=== PATIENT | female | born 1995 | race Caucasian/White ===

== ENCOUNTER 2018-02-15 08:32 | Emergency (ER) | payer BC, OTHER ==
--- NOTE | 2018-02-15 09:12 | ER Document Report ---
ED General - General Chief Complaint: Low Back Pain Stated Complaint: BACK PAIN Time Seen by Provider: 02/15/18 08:43 Notes: This is a 22-year-old female patient emergency department chief complaint of low back pain. Patient is approximately 18 weeks . No fever, chills, sweats. Recently was diagnosed with UTI and pyelo-. Was hospitalized. Currently patient is complaining of pain in the lumbar spine that radiates down both legs. Hurts to move and bend over. No trauma. No other issues at this time. Denies any complaints. Denies any numbness in the crotch area. No loss of function of the lower extremities. No fever. No loss of bowel or bladder function. TRAVEL OUTSIDE OF THE [place] IN LAST 30 DAYS: No - HPI Onset/Duration: Gradual - Related Data Allergies/Adverse Reactions: No Known Allergies Allergy (Verified 02/15/18 08:32) Past Medical History - General Information source: Patient - Social History Smoking Status: Never Smoker Chew tobacco use (# tins/day): No Frequency of alcohol use: None Drug Abuse: None Lives with: Family Family History: Reviewed & Not Pertinent Patient has suicidal ideation: No Patient has homicidal ideation: No Renal/ Medical History: Denies: Hx Peritoneal Dialysis Psychiatric Medical History: Reports: Hx Depression - Immunizations Immunizations up to date: Yes Hx Diphtheria, Pertussis, Tetanus Vaccination: Yes Review of Systems - Review of Systems Notes: Constitutional: denies: Chills, Diaphoresis, Fever, Malaise, Weakness EENT: denies: Eye discharge, Blurred vision, Tearing, Double vision, Nose congestion, Nose discharge, Throat swelling, Mouth pain Cardiovascular: denies: Palpitations, Heart racing, Orthopnea, Dyspnea, Chest pain Respiratory: denies: Cough, Hurts to breathe, Wheezing, Shortness of breath Gastrointestinal: denies: Abdominal pain, Diarrhea, Nausea, Vomiting, Black stools, bright red blood in stool Genitourinary: denies: Burning, Dysuria, Discharge, Frequency, Flank pain, Hematuria. Patient is 18 weeks . Musculoskeletal: denies: Joint pain, Joint swelling, Muscle pain, Muscle stiffness, does complain of back pain. Hematologic/Lymphatic: denies: Anemia, Easy bleeding, Easy bruising, Blood clots Neurological/Psychological: denies: Confusion, Dementia, Depression, Loss of consciousness Skin: No lesions, no masses, no skin breakdown, no abscesses Physical Exam - Vital signs Vitals: Temp Pulse Resp BP Pulse Ox 98.2 F 80 16 106/53 L 98 02/15/18 08:35 02/15/18 08:35 02/15/18 08:35 02/15/18 08:35 02/15/18 08:35 Interpretation: Normal - General General appearance: Appears well, Alert - HEENT Head: Normocephalic, Atraumatic Eyes: Normal Pupils: PERRL - Respiratory Respiratory status: No respiratory distress Chest status: Nontender Breath sounds: Normal Chest palpation: Normal - Cardiovascular Rhythm: Regular Heart sounds: Normal auscultation Murmur: No - Abdominal Inspection: Normal Distension: No distension Bowel sounds: Normal Tenderness: Nontender Organomegaly: No organomegaly - Back Back: Normal, Tender - Tenderness to palpation bilateral lumbar spine muscle area. No midline tenderness. Negative straight leg laterally - Extremities General upper extremity: Normal inspection, Nontender, Normal color, Normal ROM , Normal temperature General lower extremity: Normal inspection, Nontender, Normal color, Normal ROM , Normal temperature, Normal weight bearing. No: Ana's sign - Neurological Neuro grossly intact: Yes Cognition: Normal Orientation: AAOx4 Peyton Coma Scale Eye Opening: Spontaneous [place] Coma Scale Verbal: Oriented [place] Coma Scale Motor: Obeys Commands Peyotn Coma Scale Total: 15 Speech: Normal Motor strength normal: LUE, RUE, LLE, RLE Sensory: Normal - Psychological Associated symptoms: Normal affect, Normal mood - Skin Skin Temperature: Warm Skin Moisture: Dry Skin Color: Normal Course - Re-evaluation Re-evalutation: 02/15/18 09:39 Urinalysis concerning for mild UTI. Will add culture but based on the fact that she is will need to be treated. Well-appearing 18-week fetus seen on ultrasound with a heart rate of 146. Tylenol given. Will prescribe a few Flexeril. Advised her to drink plenty of liquids, ice packs and follow-up with her regular doctor. Red flag warning signs were given 02/15/18 10:00 - Vital Signs Vital signs: Temp Pulse Resp BP Pulse Ox 98.2 F 80 16 106/53 L 98 02/15/18 08:35 02/15/18 08:35 02/15/18 08:35 02/15/18 08:35 02/15/18 08:35 - Laboratory Laboratory results interpreted by me: 02/15/18 08:50 Urine Urobilinogen 2.0 H Ur Leukocyte Esterase SMALL H Discharge - Discharge Clinical Impression: Low back pain Qualifiers: Chronicity: acute Back pain laterality: bilateral Sciatica presence: with sciatica Sciatica laterality: bilateral sciatica Qualified Code(s): M54.42 - Lumbago with sciatica, left side; M54.41 - Lumbago with sciatica, right side; M54.41 - Lumbago with sciatica, right side Urinary tract infection Qualifiers: Urinary tract infection type: site unspecified Hematuria presence: without hematuria Qualified Code(s): N39.0 - Urinary tract infection, site not specified Condition: Good Disposition: HOME, SELF-CARE Instructions: Ice Packs ([facility]), Low Back Pain ([facility]), Muscle Strain ([facility]), Urinary Tract Infection ([facility]) Prescriptions: Cyclobenzaprine HCl [Flexeril 5 mg Tablet] 5 mg PO QHS PRN 5 Days #5 tablet PRN Reason: Muscle Spasms Nitrofurantoin/Nitrofuran Mac [Macrobid 100 mg Capsule] 1 tab PO BID #20 capsule Referrals: MERLIN ROGERS MD [ACTIVE STAFF] - Follow up as needed
[2018-02-15] MEDS ORDERED: ACETAMINOPHEN 325 MG TABLET PO ONE (09:19)
[2018-02-15 09:52] LABS: APPEARANCE,URINE CLOUDY; BILIRUBIN,URINE NEGATIVE (NEGATIVE); COLOR,URINE YELLOW; GLUCOSE, URINE NEGATIVE (NEGATIVE); KETONES,URINE NEGATIVE (NEGATIVE); LEUKOCYTE ESTERASE,URINE SMALL (NEGATIVE); NITRITE,URINE NEGATIVE (NEGATIVE); PROTEIN,URINE NEGATIVE (NEGATIVE); URINE SPECIFIC GRAVITY 1.026
[2018-02-15] MEDS ORDERED: NITROFURANTOIN MONOHYD/M-CRYST 100 MG CAPSULE PO ONE (10:03)
[2018-02-15 10:36] VITALS: BP 110/70
== END 2018-02-15 10:30 | disposition home or self-care (01) ==
LOC: ER 08:32
DX: O99.89 Other specified diseases and conditions complicating pregnancy, childbirth and the puerperium (principal); M54.41 Lumbago with sciatica, right side; M54.42 Lumbago with sciatica, left side; O23.42 Unspecified infection of urinary tract in pregnancy, second trimester; Z3A.18 18 weeks gestation of pregnancy
CPT/HCPCS: 99283; 87086; 81001; J8499

== ENCOUNTER 2018-02-22 10:56 | Emergency (ER) | payer OTHER ==
--- NOTE | 2018-02-22 11:11 | ER Document Report ---
ED Medical Screen (RME) - General Chief Complaint: Abdominal Pain Stated Complaint: ABDOMINAL PAIN Time Seen by Provider: 02/22/18 11:09 Mode of Arrival: Ambulatory Information source: Patient TRAVEL OUTSIDE OF THE [place] IN LAST 30 DAYS: No - HPI Patient complains to provider of: abd pain; Onset: Yesterday - pt is approx 19 wks and started with abd pain last pm. Worse this am. Denies vag bleeding - Related Data Allergies/Adverse Reactions: No Known Allergies Allergy (Verified 02/22/18 10:57) Past Medical History Renal/ Medical History: Denies: Hx Peritoneal Dialysis Psychiatric Medical History: Reports: Hx Depression - Immunizations Immunizations up to date: Yes Hx Diphtheria, Pertussis, Tetanus Vaccination: Yes Physical Exam - Vital signs Vitals: Temp Pulse Resp BP Pulse Ox 97.3 F 81 16 104/55 L 100 02/22/18 10:58 02/22/18 10:58 02/22/18 10:58 02/22/18 10:58 02/22/18 10:58 Course - Vital Signs Vital signs: Temp Pulse Resp BP Pulse Ox 97.3 F 81 16 104/55 L 100 02/22/18 10:58 02/22/18 10:58 02/22/18 10:58 02/22/18 10:58 02/22/18 10:58 Doctor's Discharge - Discharge Referrals: MARIFER MCADAMS PA-C [Primary Care Provider] - Follow up as needed
--- NOTE | 2018-02-22 12:00 | RADIOLOGY REPORT (SQ) ---
EXAM DESCRIPTION: U/S OB 14+ TA/1 GEST W/DOPPLER COMPLETED DATE/TIME: 02/22/2018 11:50 am REASON FOR STUDY: abd pain COMPARISON: None. TECHNIQUE: Static and Dynamic grayscale imaging performed of gravid uterus using transabdominal appr oach. Additional selected color Doppler and spectral images recorded. All stored on PACS. LIMITATIONS: None. FINDINGS: FETUSES SEEN:1 EGA: 18 weeks 4 days. Calculated using BPD,FL,HC,AC documented on images. No discrepancy with clinic al dates. EMERSON: 07/22/2017 EFW: 256 grams PERCENTILE: Not applicable. Fetus less than or equal to 20 weeks gestation. DIANNA: 5.3 PLACENTA: Posterior. GRADE: I PRESENTATION: Breech. ANATOMY: HEART RATE: 152 beats per minute. FOUR CHAMBER HEART: Visualized. THREE VESSEL CORD: Yes. CORD INSERTION: Visualized. KIDNEYS AND BLADDER: Bladder not visualized. STOMACH: Visualized. Appears normal. SPINE: Normal as visualized. BRAIN AND LATERAL VENTRICLES: Visualized. Appear normal. OTHER: No other significant finding. MATERNAL ADNEXA: Maternal ovaries not visualized. CERVICAL LENGTH: 3.4 cm. Closed. OTHER: No other significant finding. IMPRESSION: LIVING INTRAUTERINE . ESTIMATED GESTATIONAL AGE 18 weeks 4 days. NO VISUALIZED ANOMALIES. Trimester of : Second trimester - 13 weeks 1 day to 27 weeks 6 days. TECHNICAL DOCUMENTATION: JOB ID: [id number] [employer]- All Rights Reserved Reading location - IP/workstation name: [email or web address]
[2018-02-22 12:11] LABS: ABSOLUTE LYMPHOCYTES (AUTO) 1.4 10^3/uL (0.5-4.7); ABSOLUTE MONOCYTES (AUTO) 0.6 10^3/uL (0.1-1.4); ABSOLUTE NEUT (AUTO) 7.3 10^3/uL (1.7-8.2); BASOPHILS % (AUTO) 0.3 % (0-2); EOSINOPHILS % (AUTO) 0.3 % (0-6); HEMATOCRIT 35.9 % (36.0-47.0); HEMOGLOBIN 12.6 g/dL (12.0-15.5); LYMPHOCYTES % (AUTO) 14.9 % (13-45); MEAN CORPUSCULAR HEMOGLOBIN 30.9 pg (27.0-33.4); MEAN CORPUSCULAR HGB CONC 35.1 g/dL (32.0-36.0); MEAN CORPUSCULAR VOLUME 88 fl (80-97); MONOCYTES % (AUTO) 5.9 % (3-13); PLATELET COUNT 253 10^3/uL (150-450); RED BLOOD COUNT 4.09 10^6/uL (3.72-5.28); RED CELL DISTRIBUTION WIDTH 13.9 % (11.5-14.0); SEGMENTED NEUTROPHILS % (AUTO) 78.6 % (42-78); TOTAL CELLS COUNTED % (AUTO) 100 %; WHITE BLOOD COUNT 9.3 10^3/uL (4.0-10.5)
[2018-02-22 12:25] LABS: APPEARANCE,URINE SLIGHTLY-CLOUDY; BILIRUBIN,URINE NEGATIVE (NEGATIVE); COLOR,URINE YELLOW; GLUCOSE, URINE NEGATIVE (NEGATIVE); KETONES,URINE NEGATIVE (NEGATIVE); LEUKOCYTE ESTERASE,URINE NEGATIVE (NEGATIVE); NITRITE,URINE NEGATIVE (NEGATIVE); PROTEIN,URINE NEGATIVE (NEGATIVE); URINE SPECIFIC GRAVITY 1.026
[2018-02-22 12:30] LABS: ALANINE AMINOTRANSFERASE 7 U/L (9-52); ALBUMIN 3.7 g/dL (3.5-5.0); ALKALINE PHOSPHATASE 55 U/L (38-126); ANION GAP 7 (5-19); ASPARTATE AMINO TRANSFERASE 14 U/L (14-36); BILIRUBIN,DIRECT 0.2 mg/dL (0.0-0.4); BILIRUBIN,TOTAL 0.7 mg/dL (0.2-1.3); BLOOD UREA NITROGEN 13 mg/dL (7-20); CALCIUM 9.4 mg/dL (8.4-10.2); CARBON DIOXIDE 24 mmol/L (22-30); CHLORIDE 107 mmol/L (98-107); GLUCOSE 85 mg/dL (75-110); POTASSIUM 4.4 mmol/L (3.6-5.0); SODIUM 138.4 mmol/L (137-145); TOTAL PROTEIN 6.7 g/dL (6.3-8.2)
--- NOTE | 2018-02-22 12:45 | ER Document Report ---
ED GI/ - General Chief Complaint: Abdominal Pain Stated Complaint: ABDOMINAL PAIN Time Seen by Provider: 02/22/18 11:09 Mode of Arrival: Ambulatory Information source: Patient Notes: Patient is a 22-year-old female with past medical history as recorded who presents today stating the onset last night of some epigastric abdominal discomfort that is now mostly to the right lower quadrant. It was not associated with food. She has had nausea without vomiting, fevers, or diarrhea. She denies any dysuria or flank pain. She denies any aggravating or relieving factors. She denies any radiation of the pain. Patient is a at 18 and 5 by ultrasound with women[facility] health clinic. TRAVEL OUTSIDE OF THE [place] IN LAST 30 DAYS: No - HPI Patient complains to provider of: Other - See above Onset: Other - See above Timing/Duration: Gradual Quality of pain: Achy Severity at maximum: Moderate Severity in ED: Mild Pain Level: 1 Location: Other - See above Vaginal bleeding (Compared to normal period): None Associated symptoms: Other - See above Exacerbated by: Denies Relieved by: Denies Similar symptoms previously: No Recently seen / treated by doctor: No - Related Data Allergies/Adverse Reactions: No Known Allergies Allergy (Verified 02/22/18 10:57) Past Medical History - General Information source: Patient - Social History Smoking Status: Never Smoker Chew tobacco use (# tins/day): No Frequency of alcohol use: None Drug Abuse: None Family History: Reviewed & Not Pertinent Patient has suicidal ideation: No Patient has homicidal ideation: No Renal/ Medical History: Denies: Hx Peritoneal Dialysis Psychiatric Medical History: Reports: Hx Depression - Immunizations Immunizations up to date: Yes Hx Diphtheria, Pertussis, Tetanus Vaccination: Yes Review of Systems - Review of Systems Constitutional: denies: Fever Cardiovascular: denies: Chest pain Respiratory: denies: Short of breath Gastrointestinal: denies: Vomiting Genitourinary: denies: Dysuria Female Genitourinary: denies: Vaginal bleeding Musculoskeletal: denies: Leg swelling Skin: Other - no hives. denies: Rash Neurological/Psychological: Other - no slurred speech -: Yes All other systems reviewed and negative Physical Exam - Vital signs Vitals: Temp Pulse Resp BP Pulse Ox 97.3 F 81 16 104/55 L 100 02/22/18 10:58 02/22/18 10:58 02/22/18 10:58 02/22/18 10:58 02/22/18 10:58 Notes: Reviewed vital signs and nursing note as charted by RN. CONSTITUTIONAL: Alert and oriented and responds appropriately to questions. Well -appearing; well-nourished HEAD: Normocephalic; atraumatic EYES: Sclerae non-icteric ENT: Normal nose; no rhinorrhea; moist mucous membranes; pharynx without lesions noted NECK: Supple without meningismus; non-tender; no cervical lymphadenopathy, no masses CARD: Regular rate and rhythm; no murmurs RESP: Normal chest excursion without splinting or tachypnea; breath sounds clear and equal bilaterally ABD/GI: Normal bowel sounds; non-distended; fundus palpated slightly underneath the umbilicus. Patient has some mild right lower quadrant tenderness without rebound or guarding BACK: The back appears normal and is non-tender to palpation EXT: Normal ROM in all joints; non-tender to palpation; no edema SKIN: No acute lesions noted NEURO: CN 2-12 intact; 5/5 bilateral upper and lower extremity strength with sensation intact to light touch PSYCH: The patient's mood and manner are appropriate. Grooming and personal hygiene are appropriate. Course - Re-evaluation Re-evalutation: Given the history and physical examination, basic labs including urine analysis were ordered in triage. An ultrasound of the abdomen was also ordered in triage. Given the initial epigastric discomfort now migrated to the right lower quadrant with no vaginal bleeding and an 18-week female, I am concerned about the possibility of appendicitis. I will order an MRI of the abdomen. I will also check the cervix to make sure that there is no obvious dilation. Given that the patient has had no vaginal bleeding is not viable, I am not concerned about placenta previa at this moment. 02/22/18 12:46 Ultrasound as recorded. Urine analysis no obvious infection. Liver panel and lipase as recorded. With rotary engraver present I performed a manual examination showing a closed non- effaced cervix. 02/22/18 16:07 Labs and MRI as recorded. Examination is improved. Normal urine analysis. Given the above history and physical examination, with no recent pain or contraction-like symptoms, patient will be discharged home with strict return precautions and follow-up with the primary care physician. - Vital Signs Vital signs: Temp Pulse Resp BP Pulse Ox 97.3 F 81 16 104/55 L 100 02/22/18 10:58 02/22/18 10:58 02/22/18 10:58 02/22/18 10:58 02/22/18 10:58 - Laboratory Result Diagrams: 02/22/18 11:17 02/22/18 11:17 Laboratory results interpreted by me: 02/22/18 02/22/18 02/22/18 11:17 11:17 11:17 Hct 35.9 L Seg Neutrophils % 78.6 H ALT 7 L Beta HCG, Quant 75844.00 H Urine Urobilinogen 2.0 H Discharge - Discharge Clinical Impression: Abdominal discomfort, and not yet delivered in second trimester Condition: Good Disposition: HOME, SELF-CARE Additional Instructions: Come back immediately for any increased return of pain, fevers, vomiting, pain with urination, vaginal bleeding, or any other acute problems. Please follow- up with the AMBULATORY SERVICES REPRESENTATIVE as we have discussed. Referrals: MARIFER MCADAMS PA-C [Primary Care Provider] - Follow up as needed
--- NOTE | 2018-02-22 15:38 | RADIOLOGY REPORT (SQ) ---
EXAM DESCRIPTION: MRI ABDOMEN WITHOUT COMPLETED DATE/TIME: 02/22/2018 3:19 pm REASON FOR STUDY: 20; 18/5 wks ; RLQ pain COMPARISON: Ultrasound 02/22/2018. TECHNIQUE: Noncontrast imaging of the abdomen and pelvis consisting of T1 and T2 sequences. FINDINGS: Appendix: The appendix is identified in a retrocecal location and measures up to 8 mm. No surrounding inflammatory changes are suggested. Visualized solid organs: Unremarkable. No urinary obstruction suggested. Gallbladder: No stones suggested. No duct dilatation. Visualized bowel: Stool is present but no suggestion of abnormal bowel wall thickening or evidence o f gross obstruction. Other: Incompletely assessed fetus. There is suggestion of motion, variable positioning durin g the various scans. Marrow signal unremarkable. No vascular pathology. IMPRESSION: 1. No acute abdominal abnormality. No suggestion of appendicitis. TECHNICAL DOCUMENTATION: JOB ID: [id number] [employer]- All Rights Reserved Reading location - IP/workstation name: [email or web address]
[2018-02-22 16:29] VITALS: BP 96/58
== END 2018-02-22 16:29 | disposition home or self-care (01) ==
LOC: ER 10:56
DX: O26.92 Pregnancy related conditions, unspecified, second trimester (principal); R10.13 Epigastric pain; R11.0 Nausea; R50.9 Fever, unspecified; R19.7 Diarrhea, unspecified; Z3A.18 18 weeks gestation of pregnancy
CPT/HCPCS: 36415; 74181; 76805; 80053; 81001; 84702; 85025; 93976; 99284

== ENCOUNTER 2018-04-14 15:18 | Outpatient (CLI) | payer BC, OTHER ==
[2018-04-14] MEDS ORDERED: RINGERS SOLUTION,LACTATED 1,000 ML IV ONE (15:49)
[2018-04-14] MEDS ORDERED: HYDROXYZINE PAMOATE 50 MG CAPSULE PO ONE (15:50)
[2018-04-14 15:53] LABS: AMORPHOUS SEDIMENT,URINE TRACE /HPF; APPEARANCE,URINE CLOUDY; BILIRUBIN,URINE NEGATIVE (NEGATIVE); COLOR,URINE YELLOW; GLUCOSE, URINE NEGATIVE (NEGATIVE); KETONES,URINE 20 mg/dL (NEGATIVE); LEUKOCYTE ESTERASE,URINE LARGE (NEGATIVE); NITRITE,URINE NEGATIVE (NEGATIVE); PROTEIN,URINE 100 mg/dL (NEGATIVE); URINE SPECIFIC GRAVITY 1.008; UROBILINOGEN,URINE NEGATIVE mg/dL (<2.0)
[2018-04-14] MEDS ORDERED: HYDROXYZINE PAMOATE 50 MG CAPSULE ONE (15:59)
[2018-04-14 16:09] LABS: URINE AMPHETAMINES SCREEN NEGATIVE; URINE BARBITURATES SCREEN NEGATIVE; URINE BENZODIAZEPINES SCREEN NEGATIVE; URINE COCAINE SCREEN NEGATIVE; URINE MARIJUANA (THC) SCREEN NEGATIVE; URINE METHADONE SCREEN NEGATIVE; URINE PHENCYCLIDINE SCREEN NEGATIVE
[2018-04-14 16:20] LABS: BACTERIA (WET MOUNT) 4+ BACTERIA SEEN; EPITHELIALS (WET MOUNT) 4+ EPITHELIALS SEEN; T.VAGINALIS (WET MOUNT) NO TRICHOMONAS SEEN; WBCS (WET MOUNT) 2+ WBCS SEEN; YEAST (WET MOUNT) NO YEAST SEEN
[2018-04-14] MEDS ORDERED: TERBUTALINE SULFATE INJ/PF 1 MG/1 ML SDV SUBCUT ONE (17:05)
[2018-04-14] MEDS ORDERED: TERBUTALINE SULFATE INJ/PF 1 MG/1 ML SDV ONE (17:06)
[2018-04-14 17:43] LABS: CHLAM PCR NOT DETECTED (NOT DETECT); GON PCR NOT DETECTED (NOT DETECT)
--- NOTE | 2018-04-14 17:52 | RADIOLOGY REPORT (SQ) ---
EXAM DESCRIPTION: U/S OB LIMITED COMPLETED DATE/TIME: 04/14/2018 5:37 pm REASON FOR STUDY: hussain at 26 wks COMPARISON: None. TECHNIQUE: Limited transabdominal grayscale ultrasound for evaluation of specific requested obstetri angelina parameters. LIMITATIONS: None. FINDINGS: CERVICAL LENGTH: 4.5 cm. Closed. DIANNA: 20.0 cm. FHR: 168 beats per minute. PRESENTATION: Transverse, head to the maternal left. PLACENTA: Posterior ANATOMY: Not assessed OTHER: No other significant findings. IMPRESSION: LIMITED OBSTETRICAL ULTRASOUND WITH MEASURED PARAMETERS DELINEATED ABOVE. Trimester of : Second trimester - 13 weeks 1 day to 27 weeks 6 days. TECHNICAL DOCUMENTATION: JOB ID: [id number] [employer]- All Rights Reserved Reading location - IP/workstation name: [email or web address]
== END 2018-04-14 17:56 | disposition home or self-care (01) ==
LOC: LC 15:18
PROVIDERS: ATTEND Obstetrics & Gynecology
PROC: 4A1HXCZ Monitoring of Products of Conception, Cardiac Rate, External Approach (ICD-10-PCS; principal; 2018-04-14)
DX: O47.02 False labor before 37 completed weeks of gestation, second trimester (principal); Z3A.26 26 weeks gestation of pregnancy
CPT/HCPCS: 59899; 87210; 81001; 80307; 87491; 87591; 82731; 76815; J3105

== ENCOUNTER 2018-04-17 21:17 | Outpatient (CLI) | payer BC, OTHER ==
[2018-04-17 21:58] LABS: APPEARANCE,URINE CLOUDY; BILIRUBIN,URINE NEGATIVE (NEGATIVE); COLOR,URINE AMBER; GLUCOSE, URINE NEGATIVE (NEGATIVE); KETONES,URINE 80 mg/dL (NEGATIVE); LEUKOCYTE ESTERASE,URINE MODERATE (NEGATIVE); NITRITE,URINE NEGATIVE (NEGATIVE); PROTEIN,URINE 100 mg/dL (NEGATIVE); UROBILINOGEN,URINE NEGATIVE mg/dL (<2.0)
[2018-04-17 22:10] LABS: URINE AMPHETAMINES SCREEN NEGATIVE; URINE BARBITURATES SCREEN NEGATIVE; URINE BENZODIAZEPINES SCREEN NEGATIVE; URINE COCAINE SCREEN NEGATIVE; URINE MARIJUANA (THC) SCREEN NEGATIVE; URINE METHADONE SCREEN NEGATIVE; URINE PHENCYCLIDINE SCREEN NEGATIVE
== END 2018-04-17 22:25 | disposition home or self-care (01) ==
LOC: LC 21:17
PROVIDERS: ATTEND Obstetrics & Gynecology Gynecology
PROC: 4A1HXCZ Monitoring of Products of Conception, Cardiac Rate, External Approach (ICD-10-PCS; principal; 2018-04-17)
DX: O47.02 False labor before 37 completed weeks of gestation, second trimester (principal); Z3A.25 25 weeks gestation of pregnancy
CPT/HCPCS: 80307; 81001; 87086; 87088; 87186

== ENCOUNTER → 2018-07-22 | Outpatient (CLI) | payer BC, OTHER ==
--- NOTE | 2018-07-22 15:18 | RADIOLOGY REPORT (SQ) ---
EXAM DESCRIPTION: FOOT BILATERAL 3 VIEWS COMPLETED DATE/TIME: 07/22/2018 3:07 pm REASON FOR STUDY: M79.673 PAIN IN UNSPECIFIED FOOT M79.673 PAIN IN UNSPECIFIED FOOT R60.9 EDEMA, U NSPECIFIED COMPARISON: None. NUMBER OF VIEWS: Six views. TECHNIQUE: AP, lateral and oblique radiographic images acquired of the right and left foot. LIMITATIONS: None. FINDINGS: MINERALIZATION: Normal. BONES: No acute fracture or dislocation. No worrisome bone lesions. JOINTS: Intact. Bilateral hallux valgus. SOFT TISSUES: No soft tissue swelling. No foreign body. OTHER: No other significant finding. IMPRESSION: No acute findings. TECHNICAL DOCUMENTATION: JOB ID: [id number] [employer]- All Rights Reserved Reading location - IP/workstation name: [email or web address]
== END ==
LOC: RAD 14:50
PROVIDERS: ATTEND Obstetrics & Gynecology
DX: M79.673 Pain in unspecified foot (principal); R60.9 Edema, unspecified

== ENCOUNTER 2018-07-23 00:10 | Inpatient (IN) | payer BC ==
[2018-07-23] MEDS ORDERED: RINGERS SOLUTION,LACTATED 1,000 ML IV ONE (00:42)
[2018-07-23] MEDS ORDERED: RINGERS SOLUTION,LACTATED 1,000 ML IV PRN (00:42)
[2018-07-23] MEDS ORDERED: PHENYLEPHRINE HCL INJ/PF 10 MG/1 ML SDV ONE (01:04)
[2018-07-23] MEDS ORDERED: FENTANYL CITRATE INJ/PF 100 MCG/2 ML AMPUL ONE (01:04)
[2018-07-23] MEDS ORDERED: MISOPROSTOL 0.2 MG TABLET ONE (01:04)
[2018-07-23] MEDS ORDERED: OXYTOCIN 10 UNIT/ML VIAL ONE (01:04)
[2018-07-23] MEDS ORDERED: EPHEDRINE SULFATE INJ 50 MG/1 ML AMPULE ONE (01:04)
[2018-07-23] MEDS ORDERED: FENTANYL/BUPIVACAINE/NS/PF 0 MCG/0 ML RTUINJ EPI ONE (01:05)
[2018-07-23] MEDS ORDERED: LIDOCAINE 1% INJ-PF (10 MG/ML) 30 ML SDV ONE (01:05)
[2018-07-23] MEDS ORDERED: OXYTOCIN/NORMAL SALINE 20 UNIT/1,000 ML RTUINJ ONE (01:05)
[2018-07-23] MEDS ORDERED: BUPIVACAINE HCL 0.25 % INJ/PF (2.5 MG/1 ML) 30 ML VIAL ONE (01:05)
[2018-07-23 01:13] LABS: ABSOLUTE LYMPHOCYTES (AUTO) 1.9 10^3/uL (0.5-4.7); ABSOLUTE MONOCYTES (AUTO) 0.9 10^3/uL (0.1-1.4); BASOPHILS % (AUTO) 0.3 % (0-2); EOSINOPHILS % (AUTO) 0.2 % (0-6); HEMATOCRIT 34.7 % (36.0-47.0); HEMOGLOBIN 11.3 g/dL (12.0-15.5); LYMPHOCYTES % (AUTO) 17.6 % (13-45); MEAN CORPUSCULAR HEMOGLOBIN 25.8 pg (27.0-33.4); MEAN CORPUSCULAR HGB CONC 32.5 g/dL (32.0-36.0); MEAN CORPUSCULAR VOLUME 79 fl (80-97); MONOCYTES % (AUTO) 8.5 % (3-13); PLATELET COUNT 316 10^3/uL (150-450); RED BLOOD COUNT 4.38 10^6/uL (3.72-5.28); RED CELL DISTRIBUTION WIDTH 20.7 % (11.5-14.0); SEGMENTED NEUTROPHILS % (AUTO) 73.4 % (42-78); TOTAL CELLS COUNTED % (AUTO) 100 %; WHITE BLOOD COUNT 10.9 10^3/uL (4.0-10.5)
[2018-07-23] MEDS ORDERED: ACETAMINOPHEN WITH CODEINE #3 TABLET ONE (01:33)
--- NOTE | 2018-07-23 01:44 | Admission Physical ---
Datetime Report Generated by CPN: 07/23/2018 01:43 CURRENT ADMISSION Chief Complaint: Uterine Contractions; Suspected Ruptured Membranes Indication for Induction: Not Applicable Admit Impression : Term, Intrauterine ; Active Labor Admit Plan: Admit to Unit; Initiate Labor Protocol ALLERGIES Medication Allergies: No Medication Allergies: No Known Allergies (04/17/2018) Latex: No Latex Allergies OBSTETRICAL HISTORY EDC: 07/21/2018 00:00 : 2 Para: 1 Term: 0 : 1 SAB: 0 IAB: 0 Ectopic: 0 Livin Cesareans: 0 VBACs: 0 Multiple Births: 0 Gestational Diabetes: No Rh Sensitization: No Incompetent Cervix: No ABRAHAM: No Infertility: No ART Treatment: No Uterine Anomaly: No IUGR: No Hx Previous C/S: No Macrosomia: No Hx Loss/Stillborn: No PIH: No Hx : No Placenta Previa/Abruption: No Depression/PP Depression: No PTL/PROM: Yes Post Hemorrhage: No Current Procedures: Ultrasound Obstetrical History Comments: G1 2016 36 week 7lbs 4oz female G2 current SEE RECORDS Alcohol: No Marijuana : No Cocaine: No Other Illicit Drugs: No Cigarettes: Never Smoker. [id number] MEDICAL HISTORY Diabetes: No Blood Transfusion: No Pulmonary Disease (Asthma, TB): No Breast Disease: No Hypertension: No Ladle Liner Surgery: No Heart Disease: No Hosp/Surgery: No Autoimmune Disorder: No Anesthetic Complications: No Kidney Disease: No Abnormal Pap Smear: No Neuro/Epilepsy: No Psychiatric Disorders: No Other Medical Diseases: No Hepatitis/Liver Disease: No Significant Family History: No Varicosities/Phlebitis: No Trauma/Violence : No Thyroid Dysfunction: No INFECTIOUS HISTORY Gonorrhea: No Genital Herpes: Yes Chlamydia: No Tuberculosis: No Syphilis: No Hepatitis: No HIV/AIDS Exposure: No Rash or Viral Illness: No HPV: No Infectious History Comments: HSV IgM positive PHYSICAL EXAM General: Normal HEENT: Normal Neurologic: Normal Thyroid: Normal Heart: Normal Lungs: Normal Breast: Normal Back: Normal Abdomen: Normal Genitourinary Exam: Normal Extremities: Normal DTRs: Normal Pelvic Type: Adequate Vital Signs: Reviewed; Within Normal Limits VAGINAL EXAM Dilatation: 4 Effacement: 50 Station: -3 MEMBRANES Pooling: Negative Membranes: Intact FETUS A EGA: 40.2 Monitoring: External US FHR- Baseline: 140 Variability: Moderate 6-25bpm Accelerations: 15X15 Decelerations: None FHR Category: Category I Estimated Weight (gm): 3500 Presentation: Vertex PLANS FOR LABOR AND DELIVERY Labor and Delivery: None Pain Management: Epidural Feeding Preference: Both Benefit of Breast Feed Discussed: Yes INFORMED CONSENT Signature: with User ID: Bird
[2018-07-23] MEDS ORDERED: ACETAMINOPHEN 650 MG SUPP.RECT PR PRN (01:46)
[2018-07-23] MEDS ORDERED: DIPHENHYDRAMINE HCL 25 MG CAPSULE PO PRN (01:46)
[2018-07-23] MEDS ORDERED: ZOLPIDEM TARTRATE 5 MG TABLET PO PRN (01:46)
[2018-07-23] MEDS ORDERED: BENZOCAINE/MENTHOL AEROSOL SPRAY 56 ML TOP PRN (01:46)
[2018-07-23] MEDS ORDERED: MAGNESIUM HYDROXIDE SUSP 30 ML UDCUP PO PRN (01:46)
[2018-07-23] MEDS ORDERED: ACETAMINOPHEN WITH CODEINE #3 TABLET PO PRN ×2 (01:46)
[2018-07-23] MEDS ORDERED: GLYCERIN/WITCH HAZEL LEAF 1 EACH MED..WIPE TP PRN (01:46)
[2018-07-23] MEDS ORDERED: NA PHOS,M-B/NA PHOS,DI-BA (ADULT) 133 ML ENEMA PR PRN (01:46)
[2018-07-23] MEDS ORDERED: PROMETHAZINE HCL 25 MG SUPP.RECT PR PRN (01:46)
[2018-07-23] MEDS ORDERED: OXYTOCIN/NORMAL SALINE 20 UNIT/1,000 ML RTUINJ IV PRN (01:46)
[2018-07-23] MEDS ORDERED: DIPH/PERTUSS(ACELL)/TETANUS VAC/PF 0.5 ML SYR (>=10YO) IM PRN (01:46)
[2018-07-23] MEDS ORDERED: PROMETHAZINE HCL INJ 25 MG/1 ML VIAL IV PRN (01:46)
[2018-07-23] MEDS ORDERED: PSEUDOEPHEDRINE HCL 30 MG TABLET PO PRN (01:46)
[2018-07-23] MEDS ORDERED: PROMETHAZINE HCL 25 MG TABLET PO PRN (01:46)
[2018-07-23] MEDS ORDERED: MEASLES,MUMPS&RUBELLA VACC/PF 0.5 ML VIAL SUBCUT PRN (01:46)
[2018-07-23] MEDS ORDERED: DIBUCAINE 1% OINTMENT 56 GM TP PRN (01:46)
--- NOTE | 2018-07-23 02:28 | Warning Signs in Babies ---
VOD Warning Signs Datetime Report Generated by [facility]: 07/23/2018 02:28 VOD#608 -Warning Signs in Babies: Viewed with Parent(s)/Family (07/23/2018 02:27:Leela Guevara RN)
--- NOTE | 2018-07-23 03:02 | Delivery Summary ---
Del Sum A-C Datetime Report Generated by CPN: 07/23/2018 03:02 DELIVERY PERSONNEL DELIVERY PERSONNEL: [id number] Delivery Doctor:: Nia Haynes MD Labor and Delivery Nurse:: Leela Guevara RNphotographic equipment mechanic Nurse:: Raquel Peck RN Vessel Welder/BACK MAKER: Crissy Weir, POLICE SPECIALIST MATERNAL INFORMATION Delivery Anesthesia: None Medications After Delivery: Pitocin Drip 20 Units/1000ml NSS Estimated Blood Loss (ml): 200 Maternal Complications: Precipitous Labor (<3hrs) LABOR SUMMARY EDC: 07/21/2018 00:00 No. Babies in Womb: 1 Attempted: No Labor Anesthesia: None LABOR INFORMATION Reason for Induction: Not Applicable Onset of Labor: 07/09/2018 23:45 Oxytocin: N/A Group B Beta Strep: Negative Antibiotics # of Doses: 0 Steroids Given: None Reason Steroids Not Administered: Not Applicable MEMBRANES Membranes Rupture Method: Spontaneous Rupture of Membranes: 07/22/2018 23:45 Length of Rupture (hr): 1.68 Amniotic Fluid Color: Clear Amniotic Fluid Amount: Scant Amniotic Fluid Odor: None STAGES OF LABOR Stage 3 hr: 0 Stage 3 min: 4 Total Time in Labor hr: 313 Total Time in Labor min: 45 VAGINAL DELIVERY Episiotomy: None Laceration #1: None Laceration Repair: Not Applicable Sponge Count Correct: N/A Sharps Count Correct: N/A CSECTION DELIVERY Primary Indication: N/A Secondary Indication: N/A CSection Incidence: N/A Labor: N/A Elective: N/A CSection Incision: N/A BABY A INFORMATION Delivery Date/Time: 07/23/2018 01:26 Method of Delivery: Vaginal Born in Route : No : N/A Forceps: N/A Vacuum Extraction: N/A Shoulder Dystocia : No PRESENTATION/POSITION BABY A Presentation: Cephalic Cephalic Presentation: Vertex Breech Presentation: N/A PLACENTA INFORMATION BABY A Placenta Delivery Time : 07/23/2018 01:30 Placenta Method of Delivery: Expressed Placenta Status: Delivered SCORES BABY A Heart Rate 1 min: >100 bpm Resp Effort 1 min: Good Cry Reflex Irritability 1 min: Cough or Sneeze or Pulls Away Muscle Tone 1 min: Active Motion Color 1 min: Blue/Pale Resuscitation Effort 1 min: Tactile Stimulation SCORE 1 MIN: 8 Heart Rate 5 min: >100 bpm Resp Effort 5 min: Good Cry Reflex Irritability 5 min: Cough or Sneeze or Pulls Away Muscle Tone 5 min: Active Motion Color 5 min: Body [place], Extremities Blue Resuscitation Effort 5 min: Tactile Stimulation SCORE 5 MIN: 9 INFANT INFORMATION BABY A Gestational Age at Delivery: 40.2 Gestational Status: Full Term- 39- 40.6 Weeks Outcome : Liveborn Condition : Stable Infant Sex: Female IDENTIFICATION BABY A Infant Verification Date/Time: 07/23/2018 01:38 ID Band Number: [id number] Mother's Name Verified: Yes Infant RN Verifying Infant: Ilia RN Additional Verifying Personnel: F. Weir ST WEIGHT/LENGTH BABY A Birthweight (gm): 3706 Weight (lb): 8 Infant Weight (oz): 3 Length (in): 20.00 Length (cm): 50.80 CORD INFORMATION BABY A No. Cord Vessels: 3 Nuchal Cord : Around Neck x1, Loose Cord Blood Taken: Yes-For Eval (Mom's Blood Type - or O+) Suction: None ASSESSMENT BABY A Complications: None Physical Findings at Delivery: Within Normal Limits Infant Respirations: Appears Normal Senior Clerk/ALS Called : No Care By: Dany Peck RN Transferred To: Remains with Mother BABY B INFORMATION : N/A SIGNATURES Signature: with User ID: Bird
[2018-07-23 03:31] LABS: APPEARANCE,URINE CLOUDY; BILIRUBIN,URINE NEGATIVE (NEGATIVE); COLOR,URINE RED; GLUCOSE, URINE 50 mg/dL (NEGATIVE); KETONES,URINE NEGATIVE (NEGATIVE); LEUKOCYTE ESTERASE,URINE NEGATIVE (NEGATIVE); NITRITE,URINE NEGATIVE (NEGATIVE); PROTEIN,URINE 100 mg/dL (NEGATIVE); URINE SPECIFIC GRAVITY 1.011; UROBILINOGEN,URINE NEGATIVE mg/dL (<2.0)
[2018-07-23 03:53] LABS: URINE AMPHETAMINES SCREEN NEGATIVE; URINE BARBITURATES SCREEN NEGATIVE; URINE BENZODIAZEPINES SCREEN NEGATIVE; URINE COCAINE SCREEN NEGATIVE; URINE MARIJUANA (THC) SCREEN NEGATIVE; URINE METHADONE SCREEN NEGATIVE; URINE PHENCYCLIDINE SCREEN NEGATIVE
[2018-07-23] MEDS: IBUPROFEN 800 MG TABLET PO SCH ×3 (05:52→21:30)
[2018-07-23] MEDS: FERROUS SULFATE 325 MG TABLET PO SCH ×2 (12:28→18:12)
[2018-07-23] MEDS: SENNOSIDES/DOCUSATE 8.6-50 MG 1 EACH TABLET PO SCH (12:28)
[2018-07-23] MEDS: DOCUSATE SODIUM 100 MG CAPSULE PO SCH ×2 (12:28→18:12)
[2018-07-23] MEDS: FAMOTIDINE 20 MG TABLET PO SCH ×2 (12:28→21:30)
[2018-07-23] MEDS: PRENATAL VITAMIN W DHA CAPSULE PO SCH (12:28)
--- NOTE | 2018-07-23 16:34 | PDOC PROGRESS REPORT ---
Subjective-OB Progress Note for:: 07/23/18 Subjective: 23yo G2 now P2 delivery day. Pt. ambulating and voiding without difficulty. Reports pain is well tolerated with medication. Denies any concerns. Physical Exam (OB) Vital Signs: Temp Pulse Resp BP Pulse Ox 98.0 F 79 16 104/62 98 07/23/18 08:01 07/23/18 08:01 07/23/18 08:01 07/23/18 08:01 07/23/18 08:01 Intake & Output 07/22/18 07/23/18 07/24/18 06:59 06:59 06:59 Weight 69.1 kg - General General Appearance: Appears well In distress: None - PIH/Pre-Eclampsia Clonus: Negative Headache: Absent Epigastric Pain: No Visual Changes: No - Episiotomy/Laceration Site Condition: N/A - Lochia Lochia Amount: Small 10-25 ml Lochia Color: Rubra/Red - Abdomen Description: Tender Fundal Description: Firm, Midline Fundal Height: u/u - u/2 - Respiratory Respiratory Status: No respiratory distress - Extremities Upper extremity: Normal inspection Lower extremities: Normal inspection - Neurological Cognition: Normal Orientation: AAOx4 - Psychological Associated symptoms: Normal affect, Normal mood Objective-Diagnostic Laboratory: 07/23/18 00:50 07/23/18 07/23/18 07/23/18 00:50 00:50 03:15 WBC 10.9 H RBC 4.38 Hgb 11.3 L Hct 34.7 L MCV 79 L MCH 25.8 L MCHC 32.5 RDW 20.7 H Plt Count 316 Seg Neutrophils % 73.4 Lymphocytes % 17.6 Monocytes % 8.5 Eosinophils % 0.2 Basophils % 0.3 Absolute Neutrophils 8.0 Absolute Lymphocytes 1.9 Absolute Monocytes 0.9 Absolute Eosinophils 0.0 Absolute Basophils 0.0 Urine Color RED Urine Appearance CLOUDY Urine pH 6.0 Ur Specific Morrill 1.011 Urine Protein 100 H Urine Glucose (UA) 50 H Urine Ketones NEGATIVE Urine Blood LARGE H Urine Nitrite NEGATIVE Ur Leukocyte Esterase NEGATIVE Blood Type O POSITIVE Antibody Screen NEGATIVE Assessment and Plan(PN) - Assessment and Plan (1) Fall Qualifiers: Encounter type: subsequent encounter Qualified Code(s): W19.XXXD - Unspecified fall, subsequent encounter Is this a current diagnosis for this admission?: No Plan: pt fell while in the office yesterday, X-Rays normal per Dr. Huffman. Pt. denies any pain or discomfort related to fall at this time (2) Precipitate labor Is this a current diagnosis for this admission?: Yes Plan: delivered (3) Vaginal delivery Is this a current diagnosis for this admission?: Yes Plan: routine pp care, monitor for s/s of infection - Time Spent with Patient Time with patient: Less than 15 minutes Medications reviewed and adjusted accordingly: Yes - Disposition Anticipated Discharge: Home Within: within 48 hours
[2018-07-24] MEDS: IBUPROFEN 800 MG TABLET PO SCH ×3 (05:24→21:05)
[2018-07-24 06:58] LABS: HEMATOCRIT 31.4 % (36.0-47.0); HEMOGLOBIN 10.4 g/dL (12.0-15.5); MEAN CORPUSCULAR HEMOGLOBIN 26.4 pg (27.0-33.4); MEAN CORPUSCULAR HGB CONC 33.1 g/dL (32.0-36.0); MEAN CORPUSCULAR VOLUME 80 fl (80-97); PLATELET COUNT 254 10^3/uL (150-450); RED BLOOD COUNT 3.93 10^6/uL (3.72-5.28); RED CELL DISTRIBUTION WIDTH 20.7 % (11.5-14.0); WHITE BLOOD COUNT 8.3 10^3/uL (4.0-10.5)
[2018-07-24] MEDS: FAMOTIDINE 20 MG TABLET PO SCH ×2 (09:32→21:05)
[2018-07-24] MEDS: PRENATAL VITAMIN W DHA CAPSULE PO SCH (09:32)
[2018-07-24] MEDS: SENNOSIDES/DOCUSATE 8.6-50 MG 1 EACH TABLET PO SCH (09:32)
[2018-07-24] MEDS: FERROUS SULFATE 325 MG TABLET PO SCH ×2 (09:32→17:26)
[2018-07-24] MEDS: DOCUSATE SODIUM 100 MG CAPSULE PO SCH ×2 (09:33→17:26)
--- NOTE | 2018-07-24 11:57 | PDOC PROGRESS REPORT ---
Subjective-OB Progress Note for:: 07/24/18 Subjective: reports bleeding slowing, pain controlled with current meds. denies needs Physical Exam (OB) Vital Signs: Temp Pulse Resp BP Pulse Ox 97.7 F 58 L 15 112/77 100 07/24/18 08:00 07/24/18 08:00 07/24/18 08:00 07/24/18 08:00 07/24/18 08:00 Intake & Output 07/23/18 07/24/18 07/25/18 06:59 06:59 06:59 Weight 69.1 kg - Abdomen Description: Soft Hernia Present: No Fundal Description: Firm, Midline Fundal Height: u/u - u/2 - Abdominal Distension: No distension Tenderness: Nontender - Extremities Lower extremities: Ana's sign - neg Calf: Normal, Nontender Objective-Diagnostic Laboratory: 07/24/18 06:36 07/24/18 06:36 WBC 8.3 RBC 3.93 Hgb 10.4 L Hct 31.4 L MCV 80 MCH 26.4 L MCHC 33.1 RDW 20.7 H Plt Count 254 Assessment and Plan(PN) - Assessment and Plan (1) Vaginal delivery Is this a current diagnosis for this admission?: Yes - Time Spent with Patient Time with patient: Less than 15 minutes Medications reviewed and adjusted accordingly: Yes - Disposition Anticipated Discharge: Home Within: within 24 hours
[2018-07-25] MEDS: IBUPROFEN 800 MG TABLET PO SCH ×2 (06:14→14:26)
[2018-07-25 09:16] VITALS: BP 122/78
--- NOTE | 2018-07-25 09:46 | PDOC DISCHARGE SUMMARY ---
Final Diagnosis Discharge Date: 07/25/18 - PP Day #2, doing well, upset because they are going to do an EKG on baby. Pt is breast and bottle feeding, O+. Rubella Immune - Final Diagnosis (1) Normal course Is this a current diagnosis for this admission?: Yes (2) Precipitate labor Is this a current diagnosis for this admission?: Yes (3) Vaginal delivery Is this a current diagnosis for this admission?: Yes Discharge Data - Discharge Medication Prescriptions: Ibuprofen [Motrin 800 mg Tablet] 800 mg PO Q8 #60 tablet Home Medications: Ibuprofen [Motrin 800 mg Tablet] 800 mg PO Q8 #60 tablet 07/25/18 Reason(s) for Admission: Onset of Labor, Other - [facility] Procedures: Ultrasound Intrapartum Procedure(s): Spontaneous Vaginal Delivery - Diagnosis Test Laboratory: Temp Pulse Resp BP Pulse Ox 97.5 F 65 18 122/78 100 07/25/18 08:04 07/25/18 08:04 07/25/18 08:04 07/25/18 08:04 07/25/18 08:04 07/23/18 07/23/18 07/24/18 00:50 03:15 06:36 RBC 4.38 3.93 Hgb 11.3 L 10.4 L Hct 34.7 L 31.4 L Urine Opiates Screen NEGATIVE - Discharge information/Instructions Discharge Activity: Activity As Tolerated, No Lifting Over 10 Pounds, Pelvic Rest Discharge Diet: As Tolerated, Regular Disposition: HOME, SELF-CARE Follow up with: [facility] in: 4, Weeks
[2018-07-25] MEDS: SENNOSIDES/DOCUSATE 8.6-50 MG 1 EACH TABLET PO SCH (10:23)
[2018-07-25] MEDS: DOCUSATE SODIUM 100 MG CAPSULE PO SCH (10:23)
[2018-07-25] MEDS: FAMOTIDINE 20 MG TABLET PO SCH (10:23)
[2018-07-25] MEDS: FERROUS SULFATE 325 MG TABLET PO SCH (10:23)
[2018-07-25] MEDS: PRENATAL VITAMIN W DHA CAPSULE PO SCH (10:23)
== END 2018-07-25 17:40 | disposition home or self-care (01) | DRG 806 ==
LOC: LC 00:10 → LR 00:46 → 2S 03:24
PROVIDERS: ADMIT Obstetrics & Gynecology; ATTEND Obstetrics & Gynecology
PROC: 10E0XZZ Delivery of Products of Conception, External Approach (ICD-10-PCS; principal; 2018-07-23)
PROC: 4A1HXCZ Monitoring of Products of Conception, Cardiac Rate, External Approach (ICD-10-PCS; 2018-07-23)
DX: O62.3 Precipitate labor (principal); O98.32 Other infections with a predominantly sexual mode of transmission complicating childbirth; Z37.0 Single live birth; W19.XXXA Unspecified fall, initial encounter; A60.00 Herpesviral infection of urogenital system, unspecified; O69.81X0 Labor and delivery complicated by cord around neck, without compression, not applicable or unspecified; Z3A.40 40 weeks gestation of pregnancy
CPT/HCPCS: 36415; 80307; 81005; 84112; 85025; 85027; 86592; 86850; 86900; 86901; J2370; J2590; J3010; J3490

== ENCOUNTER 2018-10-23 06:26 | Emergency (ER) | payer BC, MEDICAID ==
[2018-10-23] MEDS ORDERED: METOCLOPRAMIDE HCL INJ/PF 10 MG/2 ML SDV IV ONE (09:12)
[2018-10-23] MEDS ORDERED: DIPHENHYDRAMINE HCL 50 MG/ML VIAL IV ONE (09:12)
[2018-10-23] MEDS ORDERED: KETOROLAC TROMETHAMINE INJ/PF 30 MG/1 ML SDV IV ONE (09:12)
[2018-10-23] MEDS ORDERED: NORMAL SALINE 1000 ML 1,000 ML IV ONE (09:13)
--- NOTE | 2018-10-23 09:14 | ER Document Report ---
ED Medical Screen (RME) - General Chief Complaint: Headache Stated Complaint: HEADACHE Time Seen by Provider: 10/23/18 09:12 Mode of Arrival: Ambulatory Information source: Patient Notes: Pt c/o migraine BARRIENTOS since 3am. Hx of migraines. No neck pain or fever. Exam: Patient appears well, no focal neurological deficits noted. I have greeted and performed a rapid initial assessment of this patient. A comprehensive ED assessment and evaluation of the patient, analysis of test results and completion of the medical decision making process will be conducted by additional ED providers. I have specifically instructed the patient or family members with the patient to immediately return to any nursing staff should anything change in the patient's condition or with their chief complaint. This medical record was dictated with voice recognizing software. There may be grammatical, syntax errors that are unintended. TRAVEL OUTSIDE OF THE [place] IN LAST 30 DAYS: No - Related Data Allergies/Adverse Reactions: No Known Allergies Allergy (Verified 10/23/18 06:35) Past Medical History - Social History Frequency of alcohol use: None Drug Abuse: None Renal/ Medical History: Denies: Hx Peritoneal Dialysis Psychiatric Medical History: Reports: Hx Depression - Immunizations Immunizations up to date: Yes Hx Diphtheria, Pertussis, Tetanus Vaccination: Yes Physical Exam - Vital signs Vitals: Temp Pulse Resp BP Pulse Ox 97.3 F 77 14 104/84 98 10/23/18 06:30 10/23/18 06:30 10/23/18 06:30 10/23/18 06:30 10/23/18 06:30 Course - Vital Signs Vital signs: Temp Pulse Resp BP Pulse Ox 97.3 F 77 14 104/84 98 10/23/18 06:30 10/23/18 06:30 10/23/18 06:30 10/23/18 06:30 10/23/18 06:30
[2018-10-23] MEDS ORDERED: ONDANSETRON HCL INJ/PF 4 MG/2 ML SDV IV ONE (10:07)
[2018-10-23] MEDS ORDERED: DEXAMETHASONE 4 MG TABLET PO ONE (10:07)
--- NOTE | 2018-10-23 10:10 | ER Document Report ---
ED General - General Chief Complaint: Headache Stated Complaint: HEADACHE Time Seen by Provider: 10/23/18 09:12 Mode of Arrival: Ambulatory Information source: Patient, [facility] Records Notes: 23-year-old female with depression presents with complaint of headache that started 12 hours prior to arrival with worsening of pain this morning. Patient's pain is located in her forehead and described as a aching throbbing pain. She has had associated nausea, photophobia but denies any vomiting, fever, head trauma. Pain was not maximal at onset. She has had prior similar headaches. She denies any recent illness. Prior to my exam patient did receive IV fluids, Reglan, Benadryl and Toradol and reports resolution of her headache. TRAVEL OUTSIDE OF THE [place] IN LAST 30 DAYS: No - HPI Onset: Yesterday Onset/Duration: Gradual, Persistent, Worse Quality of pain: Achy, Throbbing Severity: Moderate Pain Level: 2 Associated symptoms: Headache, Nausea. denies: Body/muscle aches, Chest pain, Fever, Vomiting, Shortness of breath Exacerbated by: Denies Relieved by: Denies Similar symptoms previously: Yes Recently seen / treated by doctor: No - Related Data Allergies/Adverse Reactions: No Known Allergies Allergy (Verified 10/23/18 06:35) Past Medical History - General Information source: Patient - Social History Smoking Status: Never Smoker Frequency of alcohol use: None Drug Abuse: None Lives with: Spouse/Significant other Family History: Reviewed & Not Pertinent Patient has suicidal ideation: No Patient has homicidal ideation: No Renal/ Medical History: Denies: Hx Peritoneal Dialysis Psychiatric Medical History: Reports: Hx Depression - Immunizations Immunizations up to date: Yes Hx Diphtheria, Pertussis, Tetanus Vaccination: Yes Review of Systems - Review of Systems Notes: REVIEW OF SYSTEMS: CONSTITUTIONAL : Denies fever, chills, or sweats. Denies recent illness. Denies weight loss, recent hospitalizations. EENT: Denies visual changes, eye pain. Denies sore throat, oral lesions, difficulty swallowing. CARDIOVASCULAR: Denies chest pain. Denies palpitations. Denies lower extremity edema. RESPIRATORY: Denies cough. Denies shortness of breath, wheezing. GASTROINTESTINAL: Denies abdominal pain or distention. Denies vomiting, or diarrhea. Denies blood in vomitus, stools, or per rectum. Denies black, tarry stools. Denies constipation. GENITOURINARY: Denies difficulty urinating, painful urination, frequency, blood in urine, or vaginal discharge. MUSCULOSKELETAL: Denies back or neck pain or stiffness. Denies joint pain or swelling. SKIN: Denies rash, lesions or sores. HEMATOLOGIC : Denies easy bruising or bleeding. LYMPHATIC: Denies swollen glands. NEUROLOGICAL: Denies confusion or altered mental status. Denies loss of consciousness. Denies dizziness or lightheadedness. Denies weakness or paralysis. Denies problems difficulty with ambulation, slurred speech. Denies sensory loss, numbness, or tingling. Denies seizures. PSYCHIATRIC: Denies anxiety or stress. Denies depression, suicidal ideation, or homicidal ideation. Denies visual or auditory hallucinations. Physical Exam - Vital signs Vitals: Temp Pulse Resp BP Pulse Ox 97.3 F 77 14 104/84 98 10/23/18 06:30 10/23/18 06:30 10/23/18 06:30 10/23/18 06:30 10/23/18 06:30 - Notes Notes: PHYSICAL EXAMINATION: GENERAL: Well-appearing, well-nourished and in no acute distress. HEAD: Atraumatic, normocephalic. EYES: Pupils equal round and reactive to light, extraocular movements intact, conjunctiva are normal. No obvious abnormalities on funduscopic exam ENT: Nares patent, oropharynx clear without exudates. Moist mucous membranes. NECK: Normal range of motion, supple without lymphadenopathy. No nuchal rigidity, meningismus LUNGS: Breath sounds clear to auscultation bilaterally and equal. No wheezes rales or rhonchi. HEART: Regular rate and rhythm without murmurs ABDOMEN: Soft, nontender, nondistended abdomen. No guarding, no rebound. No masses appreciated. Female : deferred Musculoskeletal: Normal range of motion, no pitting or edema. No cyanosis. NEUROLOGICAL: Mental status; alert and oriented x3. Cranial nerves II through XII intact. Sensation intact to sharp/dull differentiation in all extremities.Motor; normal tone. No abnormal movements appreciated. No pronator drift. Strength tested and 5/5 in bilateral wrist flexion/extension, elbow flexion/extension, shoulder abduction, straight leg raise, knee flexion/extension, ankle dorsiflexion/plantar flexion. Patient ambulates with a steady gait.Coordination; no ataxia. Finger to nose and heel to cornejo testing intact bilaterally.Reflexes; brachial radialis, biceps, and patellar reflexes within normal limits and symmetric bilaterally. Babinski with downgoing toes bilaterally. PSYCH: Normal mood, normal affect. SKIN: Warm, Dry, normal turgor, no rashes or lesions noted. Course - Re-evaluation Re-evalutation: 10/23/18 10:37 Temp Pulse Resp BP Pulse Ox 97.3 F 77 14 104/84 98 10/23/18 06:30 10/23/18 06:30 10/23/18 06:30 10/23/18 06:30 10/23/18 06:30 23-year-old female presents with 1 day of headache. Denies any associated fever, neck pain, trauma. Patient states pain started gradually and worsened during the course of the night. She has had prior similar symptoms. She is neurologically intact. She did get relief of her headache after receiving IV fluids,Reglan, Toradol and Benadryl. Patient will be discharged home with instructions to use Tylenol, Motrin and Reglan as needed for headache. Patient was evaluated and treated as appropriate for the patient's presenting symptoms and complaint, with consideration of any critical or life threatening conditions that may be associated with their obtained history and exam as noted above. All results were discussed with patient Patient provided the opportunity to ask questions, and express concerns. Patient was educated on treatments based on their presumed diagnosis as noted above. At this time we will discharge the patient with return precautions and follow-up recommendations. Verbal discharge instructions given a the bedside. Medication warnings reviewed. Patient is in agreement with this plan and has verbalized understanding of return precautions. After careful consideration I feel that that patient can be safely discharged from the emergency department, they were advised to followup with a primary care physician in 2-3 days. Dictation on this chart was performed using voice recognition software and may result in unintended grammatical, spelling, syntax or errors. - Vital Signs Vital signs: Temp Pulse Resp BP Pulse Ox 97.3 F 77 14 104/84 98 10/23/18 06:30 10/23/18 06:30 10/23/18 06:30 10/23/18 06:30 10/23/18 06:30 Discharge - Discharge Clinical Impression: Headache Qualifiers: Headache type: unspecified Headache chronicity pattern: unspecified pattern Intractability: not intractable Qualified Code(s): R51 - Headache Condition: Good Disposition: HOME, SELF-CARE Instructions: Headache ([facility]), Reglan ([facility]), Toradol Injection ([facility]) Additional Instructions: You have been seen in the Emergency Department (ED) for a headache. Please use Tylenol (acetaminophen) or Motrin (ibuprofen) Reglan, Benadryl as needed for symptoms, but only as written on the box. As we have discussed, please follow up with your primary care doctor as soon as possible regarding today's ED visit and your headache symptoms. Call your doctor or return to the ED if you have a worsening headache, sudden and severe headache, confusion, slurred speech, facial droop, weakness or numbness in any arm or leg, extreme fatigue, or other symptoms that concern you. Prescriptions: Metoclopramide HCl [Reglan 10 mg Tablet] 1 tab PO Q8H PRN #10 tablet PRN Reason: For Headache Forms: Parent Work Note
[2018-10-23 10:45] VITALS: BP 102/66
== END 2018-10-23 10:46 | disposition home or self-care (01) ==
LOC: ER 06:26
DX: R51 Headache (principal); R11.0 Nausea; H53.149 Visual discomfort, unspecified
CPT/HCPCS: J1200; J1885; J2765; J2405; J7030; 96361; 96374; 96375; 99283

== ENCOUNTER 2019-12-16 21:49 | Emergency (ER) | payer BC, MEDICAID ==
[2019-12-16 22:03] VITALS: BP 104/68
[2019-12-16] MEDS ORDERED: NORMAL SALINE 1000 ML 1,000 ML IV ONE (22:29)
[2019-12-16] MEDS ORDERED: METOCLOPRAMIDE HCL INJ/PF 10 MG/2 ML SDV IV ONE (22:29)
[2019-12-16] MEDS ORDERED: ACETAMINOPHEN 325 MG TABLET PO ONE (22:29)
--- NOTE | 2019-12-16 22:31 | ER Document Report ---
ED Medical Screen (RME) - General Chief Complaint: Abdominal Pain Stated Complaint: ABDOMINAL PAIN-19 WEEKS PREG Notes: Patient is a 24-year-old white female who is at approximate 19 weeks gestation who presents to the emergency department the chief complaint of abdominal cramping. She states for the past 4 to 5 days she has had intermittent episodes of cramping in the abdomen. She states this is to be worsened by any oral intake. She states this provokes nausea and vomiting. She saw her doctor on Saturday, 2 days ago had an ultrasound which showed her cervix to be closed and everything else to be within normal limits. The doctor advised this is round ligament pain to take Tylenol and hydrate. Patient states she is been trying these things but is having difficulty hydrating secondary to the nausea and vomiting after the oral intake and the cramping and pain in the abdomen. She denies any vaginal bleeding or discharge. No known urinary complaints. No fever or back pain. I have treated and performed a rapid initial assessment of this patient. A comprehensive ED assessment and evaluation of the patient, analysis of test results and completion of medical decision making process will be conducted by additional ED providers. PHYSICAL EXAMINATION: GENERAL: Well-appearing, well-nourished and in no acute distress. A&Ox4. Answers questions appropriately. TRAVEL OUTSIDE OF THE [place] IN LAST 30 DAYS: No - Related Data Allergies/Adverse Reactions: No Known Allergies Allergy (Verified 12/16/19 22:18) Home Medications: PRE-NATALS Past Medical History - Social History Frequency of alcohol use: None Drug Abuse: None Renal/ Medical History: Denies: Hx Peritoneal Dialysis Psychiatric Medical History: Reports: Hx Depression - Immunizations Immunizations up to date: Yes Hx Diphtheria, Pertussis, Tetanus Vaccination: Yes Physical Exam - Vital signs Vitals: Temp Pulse Resp BP Pulse Ox 97.5 F 91 18 104/68 100 12/16/19 22:02 12/16/19 22:02 12/16/19 22:02 12/16/19 22:02 12/16/19 22:02 Course - Vital Signs Vital signs: Temp Pulse Resp BP Pulse Ox 97.5 F 91 18 104/68 100 12/16/19 22:02 12/16/19 22:02 12/16/19 22:02 12/16/19 22:02 12/16/19 22:02
--- NOTE | 2019-12-16 23:35 | RADIOLOGY REPORT (SQ) ---
EXAM DESCRIPTION: US LIMITED COMPLETED DATE/TME: 12/16/2019 22:29 CLINICAL HISTORY: 24 years, Female, abd pain, 19 weeks COMPARISON: None. TECHNIQUE: LIMITATIONS: None. FINDINGS: There is a live 19 week 6 day +/- 2 week IUP in vertex presentation. cardiac activity was measured at 171 bpm. The placenta is anterior in location, with no evidence of abruption or previa. There is a normal amount of amniotic fluid. The cervix measures 3.2 cm in length and is closed. IMPRESSION: Unremarkable IUP. copyright 2010 [employer]- All Rights Reserved
== END 2019-12-17 01:45 | disposition left against medical advice (07) ==
LOC: ER 21:49
DX: O26.892 Other specified pregnancy related conditions, second trimester (principal); Z3A.19 19 weeks gestation of pregnancy
CPT/HCPCS: 76815; 99281

== ENCOUNTER → 2019-12-18 | Outpatient (CLI) | payer BC, MEDICAID ==
--- NOTE | 2019-12-18 09:30 | RADIOLOGY REPORT (SQ) ---
EXAM DESCRIPTION: U/S ABDOMEN LIMITED W/O DOP IMAGES COMPLETED DATE/TIME: 12/18/2019 9:08 am REASON FOR STUDY: R10.9 UNSPECIFIED ABDOMINAL PAIN/NAUSEA Z34.82 ENCOUNTER FOR SUPRVSN OF NORMAL MI EGNANCY, SECOND TRI R10.9 UNSPECIFIED ABDOMINAL PAIN R11.0 NAUSEA COMPARISON: None. TECHNIQUE: Dynamic and static grayscale images acquired of the abdomen and recorded on PACS. Additio nal selected color Doppler and spectral images recorded. LIMITATIONS: None. FINDINGS: PANCREAS: No masses. Visualized pancreatic duct normal caliber. LIVER: The liver measures 14.4 cm in length, normal size. Small focal hypoechoic area adjacent to t he gallbladder fossa measures 2.2 x 2.2 x 1.2 cm may represent a small area of fatty change. LIVER VASCULATURE: Normal directional flow of the main portal vein and hepatic veins. GALLBLADDER: Gallbladder sludge. No evidence of gallstones. The gallbladder wall measures 2.0 mm, normal gallbladder wall thickness. No pericholecystic fluid. ULTRASOUND-DETECTED VAYS'S SIGN: Negative. INTRAHEPATIC DUCTS AND COMMON DUCT: CBD measures 4.0 mm in diameter, normal. The intrahepatic ducts normal caliber. No filling defects. INFERIOR VENA CAVA: Normal flow. AORTA: No aneurysm. RIGHT KIDNEY: The right kidney measures 11.5 cm in length, normal size. Mild fullness in the region of the right renal pelvis may be secondary to the patient's state and or represent an extr arenal pelvis. No calcifications. PERITONEAL AND RIGHT PLEURAL SPACE: No ascites or effusions. OTHER: The patient is , EGA 19 weeks. heart rate 150 beats per minute. IMPRESSION: 1. Gallbladder sludge. No evidence of biliary obstruction. 2. Living Intrauterine , estimated gestational age 19 weeks. TECHNICAL DOCUMENTATION: JOB ID: [id number] 2010 [employer] All Rights Reserved Reading location - IP/workstation name: [email or web address]
== END ==
LOC: RAD 08:36
PROVIDERS: ATTEND Obstetrics & Gynecology Gynecology
DX: Z34.82 Encounter for supervision of other normal pregnancy, second trimester (principal); R10.9 Unspecified abdominal pain; R11.0 Nausea
CPT/HCPCS: 76705

== ENCOUNTER 2019-12-19 15:02 | Emergency (ER) | payer BC, MEDICAID ==
--- NOTE | 2019-12-19 15:40 | ER Document Report ---
ED Medical Screen (RME) - General Chief Complaint: Abdominal Pain Stated Complaint: SHORTNESS OF BREATH Time Seen by Provider: 12/19/19 15:35 Primary Care Provider: PANCHITO SORIANO MD [Primary Care Provider] - Follow up as needed Notes: HPI: 24-year-old female who is approximately 20 weeks presenting for generalized abdominal cramping, right upper quadrant pain that is been present for a week and 1 day with some burning into the chest. Patient states she was seen here 2 days ago for the same pain, had an OB ultrasound. Patient states that her SCENIC DESIGNER ordered a gallbladder ultrasound on her yesterday but she does not know the results. PHYSICAL EXAMINATION: 24-year-old female with right upper quadrant pain for 8 days. Generalized abdominal cramping. Had an OB ultrasound that measured 19 weeks 2 days ago. Had ultrasound of the gallbladder yesterday that showed sludge but no other findings. She is mildly tender in the right upper quadrant as well as generally across the abdomen I have greeted and performed a rapid initial assessment of this patient. A comprehensive ED assessment and evaluation of the patient, analysis of test results and completion of medical decision making process will be conducted by an additional ED providers. TRAVEL OUTSIDE OF THE [place] IN LAST 30 DAYS: No - Related Data Allergies/Adverse Reactions: No Known Allergies Allergy (Verified 12/19/19 15:30) Past Medical History Renal/ Medical History: Denies: Hx Peritoneal Dialysis Psychiatric Medical History: Reports: Hx Depression - Immunizations Immunizations up to date: Yes Hx Diphtheria, Pertussis, Tetanus Vaccination: Yes Physical Exam - Vital signs Vitals: Temp Pulse Resp BP Pulse Ox 97.5 F 98 20 112/70 99 12/19/19 15:13 12/19/19 15:13 12/19/19 15:13 12/19/19 15:13 12/19/19 15:13 Course - Vital Signs Vital signs: Temp Pulse Resp BP Pulse Ox 97.5 F 98 20 112/70 99 12/19/19 15:13 12/19/19 15:13 12/19/19 15:13 12/19/19 15:13 12/19/19 15:13 Doctor's Discharge - Discharge Referrals: PANCHITO SORIANO MD [Primary Care Provider] - Follow up as needed
[2019-12-19 16:27] LABS: ABSOLUTE EOSINOPHILS # (AUTO) 0.1 10^3/uL (0.0-0.6); ABSOLUTE MONOCYTES (AUTO) 0.9 10^3/uL (0.1-1.4); BASOPHILS % (AUTO) 0.2 % (0-2); HEMOGLOBIN 15.8 g/dL (12.0-15.5); TOTAL CELLS COUNTED % (AUTO) 100 %
[2019-12-19 16:33] LABS: APPEARANCE,URINE CLOUDY; BILIRUBIN,URINE NEGATIVE (NEGATIVE); COLOR,URINE AMBER; GLUCOSE, URINE NEGATIVE (NEGATIVE); KETONES,URINE 20 mg/dL (NEGATIVE); LEUKOCYTE ESTERASE,URINE MODERATE (NEGATIVE); NITRITE,URINE NEGATIVE (NEGATIVE); PROTEIN,URINE 100 mg/dL (NEGATIVE); URINE SPECIFIC GRAVITY 1.028
[2019-12-19 16:37] LABS: ABSOLUTE NEUT (AUTO) 7.8 10^3/uL (1.7-8.2); EOSINOPHILS % (AUTO) 0.9 % (0-6); HEMATOCRIT 43.8 % (36.0-47.0); LYMPHOCYTES % (AUTO) 18.7 % (13-45); MEAN CORPUSCULAR HEMOGLOBIN 31.9 pg (27.0-33.4); MEAN CORPUSCULAR VOLUME 89 fl (80-97); MONOCYTES % (AUTO) 8.3 % (3-13); PLATELET COUNT 330 10^3/uL (150-450); RED BLOOD COUNT 4.95 10^6/uL (3.72-5.28); RED CELL DISTRIBUTION WIDTH 14.3 % (11.5-14.0); SEGMENTED NEUTROPHILS % (AUTO) 71.9 % (42-78); WHITE BLOOD COUNT 10.8 10^3/uL (4.0-10.5)
[2019-12-19 16:42] LABS: ALBUMIN 3.7 g/dL (3.5-5.0); ALKALINE PHOSPHATASE 73 U/L (38-126); ANION GAP 10 (5-19); ASPARTATE AMINO TRANSFERASE 27 U/L (14-36); BILIRUBIN,DIRECT 0.3 mg/dL (0.0-0.4); BILIRUBIN,TOTAL 0.7 mg/dL (0.2-1.3); BLOOD UREA NITROGEN 10 mg/dL (7-20); CALCIUM 9.4 mg/dL (8.4-10.2); CARBON DIOXIDE 25 mmol/L (22-30); CHLORIDE 100 mmol/L (98-107); GLUCOSE 103 mg/dL (75-110); TOTAL PROTEIN 6.3 g/dL (6.3-8.2)
[2019-12-19 16:46] LABS: POTASSIUM 3.9 mmol/L (3.6-5.0)
[2019-12-19] MEDS ORDERED: NORMAL SALINE 1000 ML 1,000 ML IV ONE (17:31)
[2019-12-19] MEDS ORDERED: PROMETHAZINE HCL INJ 25 MG/1 ML VIAL IV ONE (17:42)
--- NOTE | 2019-12-19 17:46 | ER Document Report ---
ED General - General Chief Complaint: Abdominal Pain Stated Complaint: SHORTNESS OF BREATH Time Seen by Provider: 12/19/19 15:35 Primary Care Provider: PANCHITO LÓPEZ MD [Primary Care Provider] - Follow up as needed TRAVEL OUTSIDE OF THE [place] IN LAST 30 DAYS: No - HPI Notes: Patient is a G3, P2 female at approximately 20 weeks gestation who presents to the emergency department for evaluation of right upper quadrant abdominal pain. It radiates into the epigastrium, occasionally into the chest. She states she has had nausea with multiple episodes of emesis. Sometimes she feels short of breath. No fevers or chills. She is still urinating. She is still feeling the baby move. She said no vaginal discharge. She actually had OB ultrasound as well as right upper quadrant ultrasound recently. She has been trying Zofran at home, as ordered by Dr. López, and states that she is still vomiting despite that. She states she ate a hotdog and some grapes today, vomited promptly afterwards. - Related Data Allergies/Adverse Reactions: No Known Allergies Allergy (Verified 12/19/19 15:30) Home Medications: vitamin Past Medical History - General Information source: Patient - Social History Smoking Status: Never Smoker Family History: Reviewed & Not Pertinent Renal/ Medical History: Denies: Hx Peritoneal Dialysis Psychiatric Medical History: Reports: Hx Depression - Immunizations Immunizations up to date: Yes Hx Diphtheria, Pertussis, Tetanus Vaccination: Yes Review of Systems - Review of Systems Constitutional: No symptoms reported EENT: No symptoms reported Cardiovascular: No symptoms reported Respiratory: No symptoms reported Gastrointestinal: See HPI Genitourinary: No symptoms reported Female Genitourinary: See HPI Musculoskeletal: No symptoms reported Skin: No symptoms reported Neurological/Psychological: No symptoms reported Physical Exam - Vital signs Vitals: Temp Pulse Resp BP Pulse Ox 97.5 F 98 20 112/70 99 12/19/19 15:13 12/19/19 15:13 12/19/19 15:13 12/19/19 15:13 12/19/19 15:13 - Notes Notes: Vital signs reviewed, please refer to chart. Head is normocephalic, atraumatic. Pupils equal round, reactive to light. Neck is supple without meningismus. Heart is regular rate and rhythm. Lungs are clear to auscultation bilaterally. Abdomen is gravid with uterine fundus palpable just inferior to the umbilicus, moderately tender in the epigastrium and right upper quadrant without rebound or guarding, normoactive bowel sounds throughout. Extremities without cyanosis, clubbing. Posterior calves are nontender. Peripheral pulses are equal. Skin is warm and dry. Patient is awake, alert, neurological exam is nonfocal. Course - Re-evaluation Re-evalutation: 12/19/19 17:45 Patient presents to the emergency department for evaluation. I did review her ultrasound which showed biliary sludge. She is feeling the child move, normal movement, no vaginal bleeding. Her laboratory investigations failed to reveal any signs of infection or obstruction. Patient is still feeling extremely nauseated. Will order a liter of fluid, IV Phenergan. I will consult on-call OB to see if they have any other suggestions in regards to symptom management at home. Patient is currently stable, we will continue to monitor. 12/19/19 19:02 Patient's nausea has improved but she states her pain is worse. I will give her some morphine. I will contact [facility] to see if they have any other suggestions regarding to controlling this patient's biliary colic pain. 12/19/19 19:[address] López, on-call [facility]. He agrees that Phenergan suppositories are appropriate for home. He states otherwise symptomatic treatment is appro priate. I will tell her Tylenol and Phenergan at home as needed, avoid fatty and greasy foods, follow-up with [facility] next week is appropriate. - Vital Signs Vital signs: Temp Pulse Resp BP Pulse Ox 97.5 F 98 20 112/70 99 12/19/19 15:13 12/19/19 15:13 12/19/19 15:13 12/19/19 15:13 12/19/19 15:13 - Laboratory Result Diagrams: 12/19/19 16:03 12/19/19 16:03 Laboratory results interpreted by me: 12/19/19 12/19/19 12/19/19 16:03 16:03 16:03 WBC 10.8 H Hgb 15.8 H RDW 14.3 H Sodium 135.2 L Urine Protein 100 H Urine Ketones 20 H Urine Urobilinogen 4.0 H Ur Leukocyte Esterase MODERATE H Urine Ascorbic Acid 20 H - EKG Interpretation by Me Additional EKG results interpreted by me: 12/19/19 19:11 Sinus mechanism with a rate of 82 bpm. Normal axis and intervals. Nonspecific T wave changes, but no ST changes concerning for ischemia or infarction. No old studies immediately available for comparison. Discharge - Discharge Clinical Impression: Biliary colic Qualifiers: Weeks of gestation: 20 weeks Qualified Code(s): Z3A.20 - 20 weeks gestation of Condition: Stable Disposition: HOME, SELF-CARE Instructions: Gallbladder Disease ([facility]) Additional Instructions: Your work-up here today showed no signs of significant infection, no signs of blockage from your gallbladder. As discussed, please avoid all fatty and greasy foods. Phenergan suppositories as needed for severe nausea. Please note that this may cause drowsiness. Otherwise Tylenol as needed for pain. Follow-up with [facility] next week. Return to the emergency department with worsening or new concerning symptoms of any sort. Referrals: PANCHITO LÓPEZ MD [Primary Care Provider] - Follow up as needed
[2019-12-19] MEDS ORDERED: ONDANSETRON HCL INJ/PF 4 MG/2 ML SDV IV ONE (19:01)
[2019-12-19] MEDS ORDERED: MORPHINE SULFATE 10 MG/ML INJ IV ONE (19:01)
[2019-12-19] MEDS ORDERED: PROMETHAZINE HCL 25 MG SUPP (4 SUPP/ER DISP) PR ONE (19:07)
[2019-12-19 19:37] VITALS: BP 107/63
--- NOTE | 2019-12-19 21:56 | EKG REPORT ---
SEVERITY:- BORDERLINE ECG - SINUS RHYTHM PROBABLE LEFT ATRIAL ABNORMALITY BORDERLINE T ABNORMALITIES, DIFFUSE LEADS : Confirmed by: Iram Núñez MD 19-Dec-2019 21:55:31
== END 2019-12-19 19:44 | disposition home or self-care (01) ==
LOC: ER 15:02
DX: O99.612 Diseases of the digestive system complicating pregnancy, second trimester (principal); K80.50 Calculus of bile duct without cholangitis or cholecystitis without obstruction; O21.2 Late vomiting of pregnancy; Z79.899 Other long term (current) drug therapy; Z3A.20 20 weeks gestation of pregnancy
CPT/HCPCS: 93005; 99284; 96374; 96375; 36415; 83690; 85025; 80053; 81001; 93010; J3490; J2270; J2550; J2405; J7030